=== PATIENT | female | born 1940 | race Caucasian/White ===

== ENCOUNTER → 2018-05-01 09:33 | Outpatient (CLI) | payer MEDICARE, OTHER, SELFPAY | PROVIDERS: PCP Internal Medicine; Visit Provider Internal Medicine | DX: Z78.0 Asymptomatic menopausal state (principal); E07.9 Disorder of thyroid, unspecified; Z87.891 Personal history of nicotine dependence | CPT/HCPCS: 77080 ==

== ENCOUNTER → 2018-12-17 10:38 | Outpatient (CLI) | payer MEDICARE, OTHER, SELFPAY ==
--- NOTE | 2018-12-17 | DI.RAD.S_ITS ---
PROCEDURE: XR SHOULDER RT MIN 2V INDICATIONS: RIGHT SHOULDER PAIN TECHNIQUE: The views of the shoulder were acquired. COMPARISON: None. FINDINGS: Bones: No fractures or dislocations but there is a moderate degree of degenerative a.c. joint osteoarthritis and a moderately severe degree of glenohumeral joint osteoarthritis. No suspicious bony lesions. Visualized ribs appear intact. Soft tissues: No suspicious soft tissue calcifications. 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 Dictated by: Wiley Tristan M.D. on 12/17/2018 at 13:11 Approved by: Wiley Tristan M.D. on 12/17/2018 at 13:12
== END ==
PROVIDERS: PCP Internal Medicine; Visit Provider Internal Medicine
DX: M25.511 Pain in right shoulder (principal); M19.011 Primary osteoarthritis, right shoulder
CPT/HCPCS: 73030

== ENCOUNTER 2019-03-04 13:20 | Day surgery (SDC) | payer MEDICARE, OTHER, SELFPAY ==
--- NOTE | 2019-03-04 | PATH_ITS ---
[facility] Accession Number: [id number] . 01 Material submitted: . colon - POLYP AT 55CM . 01 Clinical history: . SCREENING COLONOSCOPY . 02 Diagnosis: Colon at 55 cm, Polyp: Colonic mucosa with prominent benign lymphoid aggregate. Negative for serrated lesion, dysplasia or malignancy. Additional step sections examined. MRV 03/06/2019 1403 Local . 02 Electronically signed: . Isaiah Wagner MD, PhD, Pathologist NPI- [id number] . 01 Gross description: . POLYP AT 55CM: Received in formalin is 1 fragment(s) of mccoy, soft tissue measuring 0.3 x 0.2 x 0.2 cm submitted entirely in 1 cassette(s) [place] [place]/04/2019 2234 Local . 02 Pathologist provided ICD-10: K63.5 . 02 CPT . 921555 Performed at: 01 [facility] [address] [facility], [place], [place] [id number] MD Pedro Blandon MD Phone: [phone] Performed at: 02 [facility] [address] [place], [place] [id number] MD Monica Mckenzie MD Phone: [phone]
[2019-03-04 13:49] VITALS: BP 134/82; PULSE 77; RESP 15; TEMP 36.2; O2SAT 96; BMI 23.2
[2019-03-04] MEDS: SODIUM CHLORIDE 0.9% 1,000 ML 200 ML IV (14:01)
--- NOTE | 2019-03-04 14:29 | PM.HP.1 ---
History of Present Illness History of Present Illness Date Patient Seen: 03/04/19 Time Patient Seen: 14:29 Chief complaint: [id number] SCREENING COLONOSCOPY Narrative: This is a 78-year-old woman who had a prior screening colonoscopy over 5 years ago during which polyps were found. She was recommended to have a follow-up colonoscopy in 5 years. She denies any melena, hematochezia, unexplained weight loss, unexplained abdominal pain. She feels she is very healthy and has no medical complaints. She has never had a heart attack or stroke. ROS Thirteen system review is negative other than as mentioned below and in HPI. PE: GENERAL: Well groomed and cooperative. Appears stated age. Answers questions promptly and appropriately. Vital signs noted. HENT: Normocephalic, atraumatic. Hearing intact. Oral mucosa is pink and moist. EYES: Conjunctiva pink, sclera white, no periorbital swelling. CARDIOVASCULAR: Regular rate. No pedal edema. RESPIRATORY: Non tachypneic, breathing comfortably on room air. GASTROINTESTINAL: Abdomen soft and non-distended GENITALURINARY: No flank tenderness. MUSCULOSKELETAL: Equal tone and mass bilaterally. SKIN: Warm, dry, soft, appropriate color for ethnicity. No other lesions, rashes, or wounds. NEURO: Alert and Oriented X 3. No gross sensory deficits, or cognitive issues. PSYCH: Appropriate affect and mood. Patient History Medical History Anxiety (Acute) Arthritis (Acute) Wears glasses (Acute) Surgical History History of hysterectomy (Acute) Family & Social History Social History: household members children Meds Home Medications and Allergies Home Medications Medication Instructions Recorded Confirmed Type atorvastatin 40 mg PO DAILY 03/04/19 03/04/19 History cholecalciferol (vitamin D3) 2,000 unit PO DAILY 03/04/19 03/04/19 History [Vitamin D3] coenzyme Q10 [CoQ-10] 300 mg PO DAILY 03/04/19 03/04/19 History cyanocobalamin (vitamin B-12) 2,500 mcg SUBLINGUAL DAILY 03/04/19 03/04/19 History [Vitamin B-12] fluoxetine 20 mg PO DAILY 03/04/19 03/04/19 History ibuprofen-diphenhydramine cit 1 cap PO BEDTIME 03/04/19 03/04/19 History [Advil PM] lactobacillus combination no.4 3,000 mmu cells PO DAILY 03/04/19 03/04/19 History [Probiotic] levothyroxine 88 mcg PO DAILY 03/04/19 03/04/19 History timolol maleate 0.5 % OPHTHALMIC (EYE) BID 03/04/19 03/04/19 History Allergies Allergy/AdvReac Type Severity Reaction Status Date / Time No Known Drug Allergies Allergy Verified 03/04/19 13:31 Exam Vital Signs (past 8 hours): - 03/04/19 13:49 Temperature 97.2 F L Pulse Rate 77 Respiratory Rate 15 Blood Pressure 134/82 Pulse Oximetry 96 Oxygen Delivery Method Room Air Assessment & Plan Assessment and plan (1) Personal history of colonic polyps: Current visit: Yes Status: Acute Assessment & Plan narrative: This is a 78 woman with a history of colon polyps. She is here for follow-up surveillance colonoscopy. Risks and benefits of the procedure were discussed with the patient including bleeding, perforation, need for additional procedures. The patient desires to proceed with her colonoscopy procedure. Time Spent With Patient Time with patient: 15-24 minutes
--- NOTE | 2019-03-04 15:06 | PM.OP.ENDO ---
Operative Date/Time/Diagnoses Date of procedure: 03/04/19 Time of procedure: 15:06 Pre-op diagnosis: Personal history of colon polyps Post-op diagnosis: same Procedure & Clinicians Study performed: Colonoscopy, polypectomy x1 with cold forceps Same procedure as scheduled: Yes Indications: Personal history of colon polyps Surgeon: Elsie Romero Procedure Notes SCOAP/Timeout: Performed Procedure in detail: The patient was brought to the room and placed in left lateral decubitus position with all bony prominences padded. A time-out was performed and then the patient was given procedural sedation starting with 4 mg of Versed and 100 mcg of fentanyl. Vitals were monitored throughout the procedure and remained stable. Once adequately sedated the procedure was begun. A rectal exam was performed revealing no abnormalities. The colonoscope was then introduced to the rectum and advanced to the cecum in the usual fashion. The cecum was identified by the appendiceal orifice, the mucosal try fold, and the ileocecal valve. The scope was then retracted while rotating side to side and examining each mucosal fold. A small flat polyp was found at 55 cm, and removed entirely with cold forceps. At the conclusion procedure retroflexion was performed and grade 2 internal hemorrhoids without stigmata of bleeding were seen. The scope was then withdrawn from the rectum the procedure was concluded. The patient tolerated the procedure well was transferred to the PACU in stable condition. Scope withdrawal time: 10 Sedation minutes: 30 Findings: polyp Specimen(s): other (5 mm flat polyp at 55 cm) Complications: none Impression: Single flat polyp Post-procedure Recommendations: Colonscopy in 10 years (If pathology on polyp is nonneoplastic) Follow up: as needed Disposition: PACU
[2019-03-04] MEDS: fentaNYL 250 MCG/5 ML INJ IV (15:08)
[2019-03-04] MEDS: MIDAZOLAM 5 MG/5 ML VIAL IV (15:08)
[2019-03-04 15:30] VITALS: BP 127/79; PULSE 69; RESP 16; TEMP 36.7; O2SAT 98
== END 2019-03-04 15:39 | disposition home or self-care (01) ==
PROVIDERS: PCP Internal Medicine; Visit Provider Surgery
PROC: 0DJD8ZZ Inspection of Lower Intestinal Tract, Via Natural or Artificial Opening Endoscopic (ICD-10-PCS; CPT 45378; principal; 2019-03-04 14:30)
DX: Z12.11 Encounter for screening for malignant neoplasm of colon (principal); Z86.010 Personal history of colon polyps; K63.5 Polyp of colon; K64.1 Second degree hemorrhoids
CPT/HCPCS: 45380; 99152; 99153; J2250; J3010

== ENCOUNTER → 2020-01-20 07:53 | Outpatient (CLI) | payer MEDICARE, OTHER, SELFPAY ==
[2020-01-20 09:06] LABS: Add Manual Diff / Slide Review NO; Basophils Absolute Auto 0 /uL (0-100); Basophils Percent Auto 0.6 % (0-2); Eosinophils Absolute Auto 200 /uL (0-450); Eosinophils Percent Auto 3.1 % (2-4); Hematocrit 38.6 % (36-46); Hemoglobin 13.4 g/dL (12.0-16.0); Lymphocytes Absolute Auto 1700 /uL (1100-4500); Lymphocytes Percent Auto 29.6 % (25-40); Mean Corpuscular HGB Conc 34.6 % (30-36); Mean Corpuscular Hemoglobin 31.4 PG (26-34); Mean Corpuscular Volume 90.7 fL (80-100); Monocytes Absolute Auto 600 /uL (0-900); Monocytes Percent Auto 11.1 % (3-14); Neutrophils Absolute Auto 3200 /uL (1500-7000); Neutrophils Percent Auto 55.6 % (50-75); Platelet Count 211 X10^3/uL (150-400); Red Blood Cell Count 4.26 X10^6/uL (4.0-5.2); Red Cell Distribution Width 13.6 % (11.6-14.8); White Blood Cell Count 5.8 X10^3/uL (4.5-11.0)
[2020-01-20 09:22] LABS: Alanine Aminotransferase 26 IU/L (<35); Albumin 4.1 g/dL (3.5-5.0); Albumin Globulin Ratio 1.3 (1.0-2.8); Alkaline Phosphatase 89 U/L (38-126); Aspartate Aminotransferase 29 IU/L (14-36); Bilirubin Total 0.8 mg/dL (0.2-1.3); Blood Urea Nitrogen 17 mg/dL (7-17); Calcium 8.9 mg/dL (8.4-10.2); Carbon Dioxide 27 mmol/L (22-32); Chloride 106 mmol/L (98-107); Cholesterol 140 mg/dL (140-199); Estimated Glomerular Filt Rate > 60.0 mL/min (>60); Globulin 3.1 g/dL (1.7-4.1); Glucose 95 mg/dL (80-110); HDL Cholesterol 44 mg/dL (40-60); HEMOLYSIS < 15 (0-50); LDL Cholesterol Calculated 78 mg/dL (<100); Potassium 3.9 mmol/L (3.4-5.1); Sodium 138 mmol/L (137-145); Total Protein 7.2 g/dL (6.3-8.2); Triglycerides 90 mg/dL (35-150)
[2020-01-20 10:16] LABS: Free T4, Direct Thyroxine 1.36 ng/dL (0.78-2.19)
== END ==
PROVIDERS: PCP Internal Medicine; Referring Provider Internal Medicine; Visit Provider Internal Medicine
DX: F32.9 Major depressive disorder, single episode, unspecified (principal); E03.9 Hypothyroidism, unspecified; E78.2 Mixed hyperlipidemia; M15.0 Primary generalized (osteo)arthritis
CPT/HCPCS: 36415; 80053; 80061; 84439; 84443; 85025

== ENCOUNTER → 2020-12-20 13:28 | Outpatient (CLI) | payer MEDICARE, OTHER, SELFPAY ==
--- NOTE | 2020-12-20 13:38 | DI.CT.S_ITS ---
PROCEDURE: CT UE RT WO CON INDICATIONS: Primary osteoarthritis, right shoulder TECHNIQUE: Noncontrast 1-1.5 mm thick sections acquired from the acromioclavicular joint to the inferior scapula, with coronal and sagittal reformatting. COMPARISON: [facility], CR, XR SHOULDER RT MIN 2V, 12/17/2018, 10:37. FINDINGS: Image quality: Excellent. Bones: No acute fracture or dislocation. Mild to moderate acromioclavicular osteoarthrosis is seen. The included portions of the ribs in the clavicle are intact. There are severe degenerative changes at the glenohumeral joint with full thickness joint space narrowing, subchondral cystic changes, marginal osteophyte formation, and remodeling of the articular surfaces. There is mild loss of bone stock at the posterior glenoid resulting in mild posterior subluxation of the humeral head and approximately 28? of glenoid retroversion relative to the midplane of the scapula at the mid glenoid level. Soft tissues: Small glenohumeral effusion. A moderate subcoracoid bursal fluid collection is present. The articular cartilages, labrum, ligaments and tendons are not well evaluated with CT. There is no disproportionate rotator cuff muscle atrophy. The included right lung is clear. IMPRESSION: 1. Severe glenohumeral osteoarthrosis as described above. There is loss of posterior glenoid bone stock with mild posterior subluxation of the humeral head and approximately 28? of glenoid retroversion relative to the midplane of the scapula at the mid glenoid level. 2. Mild to moderate acromioclavicular joint osteoarthrosis. 3. Small glenohumeral effusion. Moderate subcoracoid bursal effusion. Dictated by: Bentley Campos M.D. on 12/20/2020 at 14:33 Approved by: Bentley Campos M.D. on 12/20/2020 at 14:40
== END ==
PROVIDERS: PCP Physician Assistant; Referring Provider Orthopaedic Surgery; Visit Provider Orthopaedic Surgery
DX: M19.011 Primary osteoarthritis, right shoulder (principal); M25.411 Effusion, right shoulder
CPT/HCPCS: 73200

== ENCOUNTER → 2021-01-20 10:36 | Outpatient (CLI) | payer MEDICARE, OTHER, SELFPAY ==
[2021-01-20 12:08] LABS: Add Manual Diff / Slide Review NO; Basophils Absolute Auto 0 /uL (0-100); Basophils Percent Auto 0.6 % (0-2); Eosinophils Absolute Auto 100 /uL (0-450); Eosinophils Percent Auto 2.3 % (2-4); Hematocrit 40.6 % (36-46); Hemoglobin 13.5 g/dL (12.0-16.0); Lymphocytes Absolute Auto 1400 /uL (1100-4500); Lymphocytes Percent Auto 29.1 % (25-40); Mean Corpuscular HGB Conc 33.3 % (30-36); Mean Corpuscular Hemoglobin 30.5 PG (26-34); Mean Corpuscular Volume 91.7 fL (80-100); Monocytes Absolute Auto 600 /uL (0-900); Monocytes Percent Auto 12.2 % (3-14); Neutrophils Absolute Auto 2700 /uL (1500-7000); Neutrophils Percent Auto 55.8 % (50-75); Platelet Count 216 X10^3/uL (150-400); Red Blood Cell Count 4.43 X10^6/uL (4.0-5.2); Red Cell Distribution Width 13.7 % (11.6-14.8); White Blood Cell Count 4.9 X10^3/uL (4.5-11.0)
[2021-01-20 12:12] LABS: Hemoglobin A1C% w Est Avg Glu 5.3 % (4.0-6.0)
[2021-01-20 12:49] LABS: BUN Creatinine Ratio 19.2 (6-22); Blood Urea Nitrogen 14 mg/dL (7-17); Calcium 9.4 mg/dL (8.4-10.2); Carbon Dioxide 27 mmol/L (22-32); Chloride 104 mmol/L (98-107); Estimated Glomerular Filt Rate > 60.0 mL/min (>60); Glucose 90 mg/dL (80-110); HEMOLYSIS < 15 (0-50); Potassium 4.6 mmol/L (3.4-5.1); Sodium 139 mmol/L (137-145)
== END ==
PROVIDERS: PCP Physician Assistant; Referring Provider Orthopaedic Surgery; Visit Provider Orthopaedic Surgery
DX: Z01.818 Encounter for other preprocedural examination (principal); R73.9 Hyperglycemia, unspecified; M25.511 Pain in right shoulder; Z01.812 Encounter for preprocedural laboratory examination
CPT/HCPCS: 36415; 80048; 83036; 85025; 93005; 93010

== ENCOUNTER → 2021-02-25 09:12 | Outpatient (CLI) | payer MEDICARE, OTHER, SELFPAY ==
[2021-02-25 11:53] LABS: COVID19 -Nasal RAPID Negative (Negative)
== END ==
PROVIDERS: Nurse Practitioner Family; PCP Physician Assistant; Visit Provider Nurse Practitioner Family
DX: Z20.822 Contact with and (suspected) exposure to COVID-19 (principal)
CPT/HCPCS: 87635; C9803

== ENCOUNTER 2021-02-28 08:25 | Day surgery (SDC) | payer MEDICARE, OTHER, SELFPAY ==
[2021-02-16 09:43] VITALS: BMI 24.2
[2021-02-28 08:46] VITALS: BP 141/69; PULSE 58; RESP 15; TEMP 36.7; O2SAT 97; BMI 24.2
[2021-02-28] MEDS: LACTATED RINGERS 1,000 ML 42 ML IV (09:09)
[2021-02-28] MEDS: PREGABALIN 75 MG CAPSULE PO (09:13)
[2021-02-28] MEDS: CELECOXIB 200 MG CAPSULE PO (09:14)
[2021-02-28] MEDS: ACETAMINOPHEN 325 MG TABLET 975 MG PO (09:14)
--- NOTE | 2021-02-28 09:14 | PM.PREOP ---
Pre-operative Note COVID-19 COVID-19 status: Negative Result date/Date tested (Pos, Neg/Pending): 02/25/21 Interval Note History & Physical reviewed/Exam performed by Physician: Yes Changes to H&P: No
--- NOTE | 2021-02-28 09:21 | PM.OP.1 ---
Operative Date/Time/Diagnoses Date of procedure: 02/28/21 Pre-op diagnosis: Right shoulder osteoarthritis Post-op diagnosis: same Procedure & Clinicians Procedure: Right total shoulder replacement Same procedure as scheduled: Yes Indications: The patient has had progressively worsening right shoulder pain with radiographic changes consistent with arthritis. Non-operative management has failed and the patient has requested total shoulder replacement. The risks, benefits and alternatives to surgery were discussed with the patient prior to proceeding. Risks discussed included, but were not limited to, failure to relieve pain, stiffness, infection, nerve damage, deep venous thrombosis, pulmonary embolism, stroke, coma, heart attack, permanent paralysis and , as well as the potential need for eventual revision of the prosthetic. Surgeon: Isidro Herr Complaint Evaluation Supervisor: Kobi Salvador Click Yes if Unassisted: No Anesthesia Type: General, Peripheral nerve block and Local Operative Notes Closure Type: primary Specimen(s): none sent Prosthetic devices, grafts, tissues, transplants, or devices: Implants used in this procedure were manufactured by the [employer] and included Applied: implant(s) Blood products transfused: none Procedure in detail: The patient was seen in the pre-operative area, where the patient identified the right shoulder as the operative site and this was marked with my initials. The patient received pre-operative antibiotics, underwent an interscalene block, and was taken to the operating room and placed on the operative table in the supine position. After satisfactory anesthesia, a full ?time out? was performed. The patient was repositioned in the ?beach chair? position using a dedicated positioner. All pressure points were well padded, and the knees were slightly bent to prevent tension on the sciatic nerves. The right arm was prepared from the fingers to the base of the neck with ChloroPrep in the usual fashion and draped through sterile drapes. An approximately 15 cm incision was created, starting at the clavicle above the coracoid process and extended towards the deltoid insertion. The deltopectoral interval was used to access the shoulder. The cephalic vein was taken medially. A self retaining retractor was placed. The upper centimeter of the pectoralis major tendon was released. The ?three sisters? were identified and cauterized. The axillary nerve was palpated and protected throughout the case. The biceps was released from its groove and tenodesed over the top of the pectoralis major tendon. The subscapularis was released from the lesser tuberosity with a subscapularis peel and tagged for later repair. The shoulder was dislocated and a cutting guide was used for the proximal humeral osteotomy in 30 degrees of retroversion. A starter reamer was used followed by the cylindrical reamers. This continued in larger sizes in till cortical bite was achieved. Sequential broaching was then performed until a line to line fit with the reamer occurred. A proximal humeral protector was then placed. We then removed the self-retaining retractor and placed retractors to access the glenoid. The subscapularis was released with a ?360 degree release? with care being taken to protect the axillary nerve with the inferior portion of this procedure. The remnant of labrum and biceps stump were removed. The appropriate size reamer was chosen with the glenoid sizer, and the guide pin placed. The glenoid was appropriately reamed. The guide for the peripheral holes was used and the center hole enlarged. The trial glenoid was placed with good stability. We then cemented the final implant into place after irrigating the peg holes and drying them with thrombin-soaked Gelfoam. We returned our attention to the humerus, a trial humeral head was applied and a trial reduction performed. Stability was checked with []. This was felt to be satisfactory and the appropriate implants were opened. Five holes were drilled along the humeral osteotomy and #2 TiCron sutures placed for eventual subscapularis repair. The humeral prosthetic was impacted into the humerus. The humeral head was applied when the stem was still slightly proud and impacted to both seat the head and fully seat the stem. The joint was relocated one final time. The joint was irrigated and the subscapularis repaired to the previously placed sutures using Max-Kenn sutures. The top of the subscapularis was closed to the leading edge of the supraspinatus with a figure of 8 #2 TiCron to close the rotator interval. A deep drain was placed and brought out supero-laterally. The deltopectoral interval was closed with interrupted 0 Vicryl. The subcutaneous layer was closed with 3-0 Vicryl, and the skin with a running 3-0 V-Lock suture and SteriStrips. An Aquacel Ag dressing was applied, the patient?s arm was placed in a sling, and the patient was taken to recovery having tolerated the procedure well. Post-operative Condition: stable Disposition: PACU Plan for aftercare: The patient will be maintained on a standard total shoulder replacement protocol with passive range of motion limited to 90 degrees forward flexion, 0 degrees external rotation at the side, 0 degrees abduction and internal rotation to the body. The patient will receive aspirin and sequential compression devices for DVT prophylaxis. The patient will be discharged home when safe for the home environment, likely tomorrow.
[2021-02-28 09:36] VITALS: BP 154/80; PULSE 55; RESP 20; O2SAT 96
[2021-02-28 09:46] VITALS: BP 142/71; PULSE 52; RESP 14; O2SAT 98
[2021-02-28 09:52] VITALS: BP 198/106; PULSE 64; RESP 15; O2SAT 96
[2021-02-28 10:04] VITALS: BP 160/85; PULSE 61; RESP 17; O2SAT 94
--- NOTE | 2021-02-28 10:15 | SUR.PREOP ---
Block start time [0943] . Versed and fentanyl given at start of procedure Monitoring initiated and maintained throughout procedure. Oxygen and medications given per anesthesiologist instructions. Patient remained stable throughout procedure. When procedure done patient unable to talk and jerky movements noted. Vitals taken Q 5 showed soon after BP to 190s. Code stroke called when pt didn't improve right away. Taken to CT and then to ER. Dr Herr called family to notify them. See regular notes in chart and VS charting
--- NOTE | 2021-02-28 10:22 | SUR.PREOP ---
0934 Dr Ramirez here and gave Fentanyl and versed to patient prior to getting a block. Placed on a couple liters oxygen for drop in O2 sat. 0942 Lidocaine injected into right shoulder 0943 Block done 0944 Noted unusual symptoms of unable to speak and jerky movements. 0952 Able to follow commands but still unable to speak. Stll jerky and very scared BP 198/106 0957 Called code stroke. Evelyn OH from ER here to run code stroke. Glucoscan 100 Lab and other personnel here. Took patient to CT, then taking to ER
--- NOTE | 2021-02-28 10:38 | P.PCN_ITS ---
Procedures Date/Time Date of procedure: 02/28/21 Time of procedure: 09:35 General Procedure description: Ultrasound guided interscalene brachial plexus nerve block for post op pain control after right total shoulder arthroplasty by Dr. Herr. Risk and benefits of procedure discussed with patient. ASA monitoring applied to patient. O2 given via nasal cannula. 1 mg Versed and 50 mcg fentanyl given for procedural sedation. Skin site was prepped with chlorhexidine and allowed to fully dry. Sterile gloves, mask, hat and probe cover were used to maintain sterility. 2% lidocaine and 30ga needle was used to make a small skin wheal at needle insertion site. Under ultrasound guidance, a 21ga 50mm Pajunk needle was directed into the interscalene groove (middle/anterior scalenes) near the brachial plexus. Patient reported no parasthesias. After negative aspiration, 20 mL 0.5% ropivacaine and 10mg dexamethasone were injected around brachial plexus. Within 2-3 minutes of injection, patient became noticably agitated and aphasic. Upper extremities were twitching involuntarily and patient became verbally non- expressive. She was able to track with eyes, nod yes or no to questions and follow verbal commands to move each limb independently. She was unable to follow the verbal command to smile or stick out tongue. Respiratory effort remained intact throughout. Code Stroke called and surgery aborted prior to OR. Information relayed to Stroke Team regarding expectation of temporary (12-36 hr) right upper extremity paralysis due to intentional right brachial plexus nerve block. Vitals signs reflected severe anxiety (BP 190-100). Patient denied pain and headache during and after procedure.
== END 2021-02-28 08:30 | disposition home or self-care (01) ==
LOC: OR 08:27 → AC 11:13 → OR 03-01 01:13
PROVIDERS: PCP Physician Assistant; Referring Provider Orthopaedic Surgery; Visit Provider Orthopaedic Surgery
DX: M19.011 Primary osteoarthritis, right shoulder (principal)
CPT/HCPCS: 64450; 82962; J1100; J2250; J2704; J3010

== ENCOUNTER 2021-02-28 10:10 | Emergency (ER) | payer MEDICARE, OTHER, SELFPAY ==
[2021-02-28] VITALS (32 sets, daily range): BP systolic 145–191; BP diastolic 68–132; PULSE 47–97; RESP 13–31; O2SAT 91–95
--- NOTE | 2021-02-28 10:15 | DI.CT.S_ITS ---
PROCEDURE: CT ANGIO HEAD AND NECK INDICATIONS: Expressive aphasia TECHNIQUE: After the administration of intravenous contrast, 1 mm thick sections acquired from the aortic arch through the [place]. Post-contrast 4.5 mm thick sections then re-acquired from the foramen magnum to the vertex. 3-dimensional almqeue-jhvtabcvw-knfrthmayh (MIP) and/or volume rendering reformats were acquired of the central intracranial vasculature and neck separately. COMPARISON: [facility], CT, CT STROKE, 02/28/2021, 10:14. FINDINGS: Image quality: Excellent. BRAIN: CSF spaces: Ventricles are normal in size and shape. Basal cisterns are patent. No extra-axial fluid collections. Brain: No midline shift. No intracranial bleeds or masses. Foy-white matter interface appears intact. Skull and face: Calvarium and facial bones appear intact, without suspicious lesions. Orbits appear normal. Sinuses: Sinuses and mastoids are clear. HEAD CT ANGIOGRAPHY: Anterior circulation: Intracranial internal carotid arteries are normal in size and flow. The flow within the paired anterior cerebral arteries is normal and symmetric. The flow within the middle cerebral arteries is normal and symmetric. The anterior communicating artery is seen. No aneurysms are seen. Posterior circulation: Visualized portions of the vertebral arteries demonstrate normal caliber, and join to form a normal appearing basilar artery. Flow within the posterior cerebral arteries is normal and symmetric. No aneurysms are seen. NECK CT ANGIOGRAPHY: Carotid system: The great vessels demonstrate a conventional anatomy as they arise from the aortic arch. The origins of the common carotid arteries appear patent. The common carotid arteries demonstrate normal caliber and courses. The bifurcation regions are both widely patent. The internal carotid arteries demonstrate normal calibers and courses. Posterior circulation: The origins of the vertebral arteries both appear widely patent. The more superior extracranial portions of both vertebral arteries also demonstrate normal courses and calibers. They join to form a normal appearing basilar artery. Soft tissues: Visualized neck soft tissues demonstrate no suspicious abnormalities. Bones: No suspicious bony lesions. Visualized cervical spine appears normally aligned. IMPRESSION: 1. No evidence acute stroke, hemorrhage, or mass. 2. Unremarkable CTA head. No stenosis, aneurysm, occlusion, or focal filling defect. 3. Widely patent internal carotids. Otherwise unremarkable CTA neck. Comment: Findings were discussed with Dr. Good on 02/28/2021 at 1038 hours Any quantitative measurements of stenosis were performed using NASCET criteria. Dictated by: Stephon Graham M.D. on 02/28/2021 at 10:35 Approved by: Stephon Graham M.D. on 02/28/2021 at 10:39
--- NOTE | 2021-02-28 10:15 | DI.CT.S_ITS ---
PROCEDURE: CT STROKE INDICATIONS: Expressive aphasia TECHNIQUE: Noncontrast 4.5 mm thick angled axial sections acquired from the foramen magnum to the vertex, with coronal reformats. For radiation dose reduction, the following was used: automated exposure control, adjustment of mA and/or kV according to patient size. COMPARISON: None. FINDINGS: Image quality: Excellent. CSF spaces: Basal cisterns are patent. No extra-axial fluid collections. The ventricles are symmetric in size and shape. Brain: No intracranial bleeds or masses. There is cerebral volume loss for age, with resultant ventricular and sulcal prominence. There are periventricular and deep white matter chronic small vessel ischemic changes. There is intracranial internal carotid artery atherosclerosis. Skull and face: Calvarium and visualized facial bones appear intact, without suspicious lesions. Sinuses: Visualized sinuses and mastoids are clear. IMPRESSION: No evidence acute stroke, hemorrhage, or mass. Comment: Findings were discussed with Dr. Good at the time of study dictation on 02/28/2021 at 1033 hours. This study fulfills neurological imaging criteria for inclusion or exclusion of acute stroke therapies based on available published neurological guidelines. Dictated by: Stephon Graham M.D. on 02/28/2021 at 10:32 Approved by: Stephon Graham M.D. on 02/28/2021 at 10:34
--- NOTE | 2021-02-28 10:16 | ED.NEUROSD ---
HPI - Neuro Symptoms/Deficit General Chief Complaint: Neuro Symptoms/Deficit Stated Complaint: code stroke Time Seen by Provider: 02/28/21 10:14 Source: other Mode of arrival: other Limitations: other History of Present Illness HPI Narrative: Code stroke called from the operating room department. Patient transferred here and sent directly to CT scan imaging for CT of the head and angiogram. Patient had right shoulder surgery is morning. Had a nerve block in the shoulder. After completion procedure patient had expressive aphasia. Her last well-known 9:45 a.m. just prior to giving sedation. Patient symptoms have resolved. Anesthesiologist at bedside. Patient had scalene block for total right shoulder valenzuela surgery. Anesthesiologist states it could be medication related however this is uncommon. Patient had only 1 mg of Versed as well. Patient still has residual right scalene shoulder block affect. Patient does remember conversation but could not speak. Duration 20 minutes. Related Data Home Medications Medication Instructions Recorded Confirmed atorvastatin 40 mg tablet 40 mg PO DAILY 03/04/19 02/28/21 cholecalciferol (vitamin D3) 50 2,000 unit PO DAILY 03/04/19 02/28/21 mcg (2,000 unit) tablet (Vitamin D3) coenzyme Q10 100 mg capsule 300 mg PO DAILY 03/04/19 02/28/21 (CoQ-10) cyanocobalamin (vitamin B-12) 2,500 mcg SUBLINGUAL DAILY 03/04/19 02/28/21 2,500 mcg sublingual tablet (Vitamin B-12) fluoxetine 20 mg capsule 20 mg PO DAILY 03/04/19 02/28/21 lactobacillus combination no.4 3 3,000 mmu cells PO DAILY 03/04/19 02/28/21 billion cell capsule (Probiotic) levothyroxine 88 mcg tablet 100 mcg PO DAILY 03/04/19 02/28/21 brimonidine 0.2 %-timolol 0.5 % 1 drp EYE-BOTH BID 02/16/21 02/28/21 eye drops (Combigan) diphenhydramine 25 1 tab PO BEDTIME 02/16/21 02/28/21 mg-acetaminophen 500 mg tablet (Acetaminophen PM) latanoprost 0.005 % eye drops 1 drp EYE-BOTH DAILY 02/16/21 02/28/21 meloxicam 15 mg tablet 15 mg PO DAILY PRN 02/16/21 02/28/21 Allergies Allergy/AdvReac Type Severity Reaction Status Date / Time adhesive tape Allergy Mild Skin Verified 02/28/21 08:42 Irritation, paper tape works well Review of Systems Review of Systems Narrative: GENERAL: Denies chills, fatigue, malaise, fever, sweats. HEENT: Denies sinus pain, ear pain, sore throat RESPIRATORY: Denies dyspnea, cough CARDIOVASCULAR: Denies chest pain, palpitations GASTROINTESTINAL: Denies nausea, vomiting, abdominal pain : Denies dysuria, frequency, hematuria MUSCULOSKELETAL: denies muscle or bony pain SKIN: Denies rash, skin lesions NEUROLOGIC: Denies weakness, numbness, positive for confusion ROS Unobtainable: All systems reviewed & are unremarkable except as noted in HPI and below Patient History Medical History Anxiety Arthritis Depression Glaucoma HLD (hyperlipidemia) Hypothyroid Osteoarthritis Wears glasses Surgical History History of hysterectomy Hx of bilateral cataract extraction Hx of breast biopsy Social History household members: children Smoking Status: Former smoker alcohol intake: current Smoking Status: Former smoker alcohol intake frequency: a few times a week Substance Use Type: does not use Exam Narrative Exam Narrative: GENERAL: in no distress, not toxic not dyspneic HEAD: Normocephalic. EYES: Pupils equal round No scleral icterus. ENT: Mucous membranes moist. NECK: Trachea midline. CARDIOVASCULAR: Regular rate and rhythm without murmurs RESPIRATORY: Clear to auscultation. Breath sounds equal bilaterally. No wheezes, rales, or rhonchi. GASTROINTESTINAL: Abdomen soft, non-tender EXTREMITIES: No gross deformities. BACK: No flank tenderness. NEURO: AOx4. Clear speech no facial droop light touch intact to bilateral feet and left hand and bilateral face. Strong left commodity supervisor. No pronator drift with the left arm. Patient has nerve block in the right shoulder and unable to assess motor sensory to right upper extremity at this time. SKIN: Warm and dry PSYCH: Not anxious, is cooperative Initial Vital Signs Initial Vital Signs: Vital Signs Pulse Rate 59 L 02/28/21 10:25 Respiratory Rate 17 02/28/21 10:25 Blood Pressure 152/72 H 02/28/21 10:25 Pulse Oximetry 93 02/28/21 10:25 Scores NIH Stroke Scale Level of Conciousness: Alert, keenly responsive Ask month/age: Answers both questions correctly. Best gaze horizontal: Normal Visual cerna: No visual loss Facial palsy: Normal symetrical movement Left arm drift: No drift for full 10 sec Right arm drift: No movement (pt under anesthesia block) Left leg drift: No drift for full 5 sec Right leg drift: No drift for full 5 sec Sensory on face/arms/legs: Normal, no sensory loss (Patient's head is nontender and normocephalic. There is no swelling nor any obvious injury.) Best language: No aphasia, normal Dysarthria: Normal Extinction or inattention: No abnormality Course Course Course Narrative: 10:[address] Graham, radiologist, CT brain without contrast is negative. No acute process. 10:[address] Graham, radiologist, CT angiogram of head and neck no acute process Patient understands no bed availability here. Will need transfer for stroke workup Orders Ordered: ED Orders 02/28/21 09:58 EKG-12 Lead Stat 02/28/21 10:[address] angio head and neck Stat 02/28/21 10:16 Partial Thromboplastin Time Stat Prothrombin Time INR Stat 02/28/21 10:20 Complete Blood Count AUTO DIFF Stat Comprehensive Metabolic Panel Stat Troponin & CK Cardiac Panel Stat 02/28/21 11:45 EC echo doppler complete Stat 02/28/21 11:46 MR head/brain wo con Stat 02/28/21 12:34 COVID19 - ADMIT (STRIKE WARFARE/MISSILE SYSTEMS OFFICER swab/PCR) Stat Reevaluation(s) Reevaluation #1: Updated patient that Dr. Herr did call family and left a voicemail. We will try calling as well. Updated patient on results. As well as conversation with neurology/stroke team. Advised for admit in MRI and echocardiogram. Time: 11:16 Reevaluation #2: Left voicemail with son to call us. Time: 11:42 Consultations Consultation #1: Spoke with Dr. vic lei, tele stroke. Advises patient to be admitted for MRI and echocardiogram as patient did not have any altered mental status continue confusion with expressive aphasia Time: 11:17 Consultation #2: Spoke with [facility], hospitalist, dr patterson, will accept pt Time: 11:35 Consultation #3: Spoke with [facility], nurse environmental project manager, Santosh, as well as hospitalist, echo and MRI are done. Will find a bed for patient Time: 15:36 Additional Consultation(s): Son did arrive and at bedside. Explained to him transfer indications and reasons. He understood. Vital Signs Vital signs: Vital Signs - 8 hr 02/28/21 10:25 02/28/21 10:30 02/28/21 10:45 Pulse Rate 59 L 59 L 59 L Respiratory Rate 17 24 24 Blood Pressure 152/72 H 145/71 H Pulse Oximetry 93 92 93 02/28/21 11:00 02/28/21 11:15 02/28/21 11:30 Pulse Rate 49 L 48 L 49 L Respiratory Rate 15 20 15 Blood Pressure 158/70 H 165/74 H Pulse Oximetry 93 92 92 02/28/21 11:45 02/28/21 12:00 02/28/21 12:04 Pulse Rate 48 L 57 L 53 L Respiratory Rate 24 24 24 Blood Pressure Pulse Oximetry 91 95 94 02/28/21 12:05 02/28/21 12:32 02/28/21 12:36 Pulse Rate 60 53 L Respiratory Rate 19 Blood Pressure 186/89 H 191/81 H Pulse Oximetry 93 94 02/28/21 12:45 02/28/21 13:00 02/28/21 13:01 Pulse Rate 60 48 L 49 L Respiratory Rate 25 H 16 17 Blood Pressure 169/106 H Pulse Oximetry 94 94 94 02/28/21 13:17 02/28/21 13:30 02/28/21 13:31 Pulse Rate 94 H 47 L 47 L Respiratory Rate 15 15 Blood Pressure 162/89 H Pulse Oximetry 95 93 93 02/28/21 13:45 02/28/21 14:00 02/28/21 14:15 Pulse Rate 54 L 49 L 48 L Respiratory Rate 31 H 21 21 Blood Pressure 178/78 H Pulse Oximetry 94 94 94 02/28/21 14:30 02/28/21 14:31 02/28/21 14:45 Pulse Rate 48 L 97 H 50 L Respiratory Rate 22 24 19 Blood Pressure 183/132 H Pulse Oximetry 92 92 93 02/28/21 15:00 02/28/21 15:01 02/28/21 15:15 Pulse Rate 49 L 49 L 49 L Respiratory Rate 18 16 17 Blood Pressure 162/103 H Pulse Oximetry 91 91 91 MDM - Neuro Symptoms/Deficit Differential Diagnosis Differential diagnosis: Likely subarachnoid hemorrhage, cerebrovascular accident and transient cerebral ischemia Lab Data Result diagrams: 02/28/21 10:20 02/28/21 10:20 Labs: Lab Results 02/28/21 02/28/21 02/28/21 Range/Units 10:16 10:20 10:20 WBC 6.2 (4.5-11.0) X10^3/uL RBC 4.26 (4.0-5.2) X10^6/uL Hgb 13.2 (12.0-16.0) g/dL Hct 38.6 (36-46) % MCV 90.5 (80-100) fL MCH 31.1 (26-34) PG MCHC 34.3 (30-36) % RDW 13.3 (11.6-14.8) % Plt Count 201 (150-400) X10^3/uL Neut % (Auto) 67.6 (50-75) % Lymph % (Auto) 19.5 L (25-40) % Lat[place] % (Auto) 11.1 (3-14) % Eos % (Auto) 1.2 L (2-4) % Baso % (Auto) 0.6 (0-2) % Neut # (Auto) 4200 (1948-6406) /uL Lymph # (Auto) 1200 (0901-2564) /uL [place] # (Auto) 700 (0-900) /uL Eos # (Auto) 100 (0-450) /uL Baso # (Auto) 0 (0-100) /uL PT 12.0 (10.1-12.7) SECONDS INR 1.1 (0.9-1.3) APTT 29 (26.4-36.2) SECONDS Sodium 138 (137-145) mmol/L Potassium 4.0 (3.4-5.1) mmol/L Chloride 106 (98-107) mmol/L Carbon Dioxide 24 (22-32) mmol/L BUN 12 (7-17) mg/dL Creatinine 0.66 (0.52-1.04) mg/dL Estimated GFR > 60.0 (>60) mL/min BUN/Creatinine Ratio 18.2 (6-22) Glucose 99 (80-110) mg/dL Calcium 8.7 (8.4-10.2) mg/dL Total Bilirubin 0.8 (0.2-1.3) mg/dL AST 26 (14-36) IU/L ALT 19 (<35) IU/L Alkaline Phosphatase 82 (38-126) U/L Total Creatine Kinase 57 (30-135) U/L CK-MB (CK-2) TNP CK-MB (CK-2) Rel Index TNP Troponin I < 0.012 (0.01-0.034) ng/mL Total Protein 6.7 (6.3-8.2) g/dL Albumin 4.1 (3.5-5.0) g/dL Globulin 2.6 (1.7-4.1) g/dL Albumin/Globulin Ratio 1.6 (1.0-2.8) SARS-CoV-2 (PCR) (Negative) 02/28/21 Range/Units 12:34 WBC (4.5-11.0) X10^3/uL RBC (4.0-5.2) X10^6/uL Hgb (12.0-16.0) g/dL Hct (36-46) % MCV (80-100) fL MCH (26-34) PG MCHC (30-36) % RDW (11.6-14.8) % Plt Count (150-400) X10^3/uL Neut % (Auto) (50-75) % Lymph % (Auto) (25-40) % Latimer % (Auto) (3-14) % Eos % (Auto) (2-4) % Baso % (Auto) (0-2) % Neut # (Auto) (0177-3997) /uL Lymph # (Auto) (3647-2973) /uL Latimer # (Auto) (0-900) /uL Eos # (Auto) (0-450) /uL Baso # (Auto) (0-100) /uL PT (10.1-12.7) SECONDS INR (0.9-1.3) APTT (26.4-36.2) SECONDS Sodium (137-145) mmol/L Potassium (3.4-5.1) mmol/L Chloride (98-107) mmol/L Carbon Dioxide (22-32) mmol/L BUN (7-17) mg/dL Creatinine (0.52-1.04) mg/dL Estimated GFR (>60) mL/min BUN/Creatinine Ratio (6-22) Glucose (80-110) mg/dL Calcium (8.4-10.2) mg/dL Total Bilirubin (0.2-1.3) mg/dL AST (14-36) IU/L ALT (<35) IU/L Alkaline Phosphatase (38-126) U/L Total Creatine Kinase (30-135) U/L CK-MB (CK-2) CK-MB (CK-2) Rel Index Troponin I (0.01-0.034) ng/mL Total Protein (6.3-8.2) g/dL Albumin (3.5-5.0) g/dL Globulin (1.7-4.1) g/dL Albumin/Globulin Ratio (1.0-2.8) SARS-CoV-2 (PCR) Negative (Negative) Point of Care Testing Glucose POC 117 Urine Dip Bedside Urine Glucose Negative Bedside Urine Bilirubin - Negative Bedside Urine Ketone - Negative Urine Specific [place] 1.015 Bedside Urine Occult Blood - Negative Bedside Urine pH 7.0 Bedside Urine Protein - Negative Bedside Urine Urobilinogen - Negative Bedside Urine Nitrite - Negative Bedside Urine Leukocytes + 70 Esterase Imaging Data CTA - brain/neck: My Impression: [place] [address] CT Scan Report Signed Patient: Eden Hadley MR#: [id number] : 1940 Acct:[id number] Age/Sex: 80 / F Date of Service: 02/28/21 Loc: ED Accession Number: [id number] ?? Procedure: CT Stroke Ordering Provider: Ronaldo Pierre MD PROCEDURE:? CT STROKE ? INDICATIONS:? Expressive aphasia ? TECHNIQUE:? Noncontrast 4.5 mm thick angled axial sections acquired from the foramen magnum to the vertex, with coronal reformats.? For radiation dose reduction, the following was used:? automated exposure control, adjustment of mA and/or kV according to patient size.? ? COMPARISON:? None. ? FINDINGS:? Image quality:? Excellent.? ? CSF spaces:? Basal cisterns are patent.? No extra-axial fluid collections.? The ventricles are symmetric in size and shape.? ? Brain:? No intracranial bleeds or masses.? There is cerebral volume loss for age, with resultant ventricular and sulcal prominence.? There are periventricular and deep white matter chronic small vessel ischemic changes.? There is intracranial internal carotid artery atherosclerosis.? ? Skull and face:? Calvarium and visualized facial bones appear intact, without suspicious lesions.? ? Sinuses:? Visualized sinuses and mastoids are clear.? ? IMPRESSION:? No evidence acute stroke, hemorrhage, or mass. ? Comment: Findings were discussed with? Dr. Pierre at the time of study dictation on 02/28/2021 at 1033 hours. ? ? This study fulfills neurological imaging criteria for inclusion or exclusion of acute stroke therapies based on available published neurological guidelines.? ? ? Dictated by: Stephon Graham M.D. on 02/28/2021 at 10:32 ? ? Approved by: Stephon Graham M.D. on 02/28/2021 at 10:34 ? Radiologist's Impression: [place] [address] CT Scan Report Signed Patient: Eden Hadley MR#: [id number] : 1940 Acct:[id number] Age/Sex: 80 / F Date of Service: 02/28/21 Loc: ED Accession Number: [id number] ?? Procedure: CT angio head and neck Ordering Provider: Ronaldo Pierre MD PROCEDURE:? CT ANGIO HEAD AND NECK ? INDICATIONS:? Expressive aphasia ? TECHNIQUE:? After the administration of intravenous contrast, 1 mm thick sections acquired from the aortic arch through the [place].? Post-contrast 4.5 mm thick sections then re-acquired from the foramen magnum to the vertex.? 3-dimensional xshkznr-scmpjohtw-cmojpikixh (MIP) and/or volume rendering reformats were acquired of the central intracranial vasculature and neck separately. ? COMPARISON:? [facility], CT, CT STROKE, 02/28/2021, 10:14. ? FINDINGS:? Image quality:? Excellent.? ? BRAIN:? CSF spaces:? Ventricles are normal in size and shape.? Basal cisterns are patent.? No extra-axial fluid collections.? ? Brain:? No midline shift.? No intracranial bleeds or masses.? Foy-white matter interface appears intact.? ? Skull and face:? Calvarium and facial bones appear intact, without suspicious lesions.? Orbits appear normal.? ? Sinuses:? Sinuses and mastoids are clear.? ? HEAD CT ANGIOGRAPHY:? Anterior circulation:? Intracranial internal carotid arteries are normal in size and flow.? The flow within the paired anterior cerebral arteries is normal and symmetric.? The flow within the middle cerebral arteries is normal and symmetric.? The anterior communicating artery is seen.? No aneurysms are seen.? ? Posterior circulation:? Visualized portions of the vertebral arteries demonstrate normal caliber, and join to form a normal appearing basilar artery.? Flow within the posterior cerebral arteries is normal and symmetric.? No aneurysms are seen.? ? NECK CT ANGIOGRAPHY:? Carotid system:? The great vessels demonstrate a conventional anatomy as they arise from the aortic arch.? The origins of the common carotid arteries appear patent.? The common carotid arteries demonstrate normal caliber and courses.? The bifurcation regions are both widely patent.? The internal carotid arteries demonstrate normal calibers and courses.? ? Posterior circulation:? The origins of the vertebral arteries both appear widely patent.? The more superior extracranial portions of both vertebral arteries also demonstrate normal courses and calibers.? They join to form a normal appearing basilar artery.? ? Soft tissues:? Visualized neck soft tissues demonstrate no suspicious abnormalities.? ? Bones:? No suspicious bony lesions.? Visualized cervical spine appears normally aligned.? IMPRESSION:? ? 1. No evidence acute stroke, hemorrhage, or mass. ? 2. Unremarkable CTA head.? No stenosis, aneurysm, occlusion, or focal filling defect. ? 3. Widely patent internal carotids.? Otherwise unremarkable CTA neck.? ? Comment: Findings were discussed with Dr. Pierre on? 02/28/2021 at 1038 hours ? Any quantitative measurements of stenosis were performed using NASCET criteria.? ? ? Dictated by: Stephon Graham M.D. on 02/28/2021 at 10:35 ? ? Approved by: Stephon Graham M.D. on 02/28/2021 at 10:39 ? MRI brain: Radiologist's Impression: [address] [address] Magnetic Resonance Report Signed Patient: Eden Hadley MR#: [id number] : 1940 Acct:[id number] Age/Sex: 80 / F Date of Service: 02/28/21 Loc: ED Accession Number: [id number] ?? Procedure: MR head/brain wo con Ordering Provider: Ronaldo Pierre MD PROCEDURE:? MR HEAD/BRAIN WO CON ? INDICATIONS:? Expressive aphasia ? TECHNIQUE:? Non-contrast axial T1 spin echo, axial T2 fast spin echo, sagittal and axial FLAIR, coronal T2 fast spin echo, axial gradient echo, axial diffusion and ADC through the brain.? ? COMPARISON:? None. ? FINDINGS:? Image quality:? Excellent.? ? CSF spaces:? Ventricles appear symmetric in size and shape.? Basal cisterns are patent.? No extra-axial fluid collections.? ? Brain:? Mild global cerebral volume loss.? No intracranial bleeds or mass effects.? Midline structures normal in configuration.? Diffusion-weighted images show no acute ischemic insults.? No chronic ischemic insults.? Normal intravascular flow voids are present.? ? Skull and face:? Calvarial bone marrow is normal in signal.? Orbits are normal.? ? Sinuses:? Sinuses and mastoids are clear.? ? IMPRESSION:? No findings of acute infarct or other acute intracranial abnormality.? Mild global cerebral volume loss. ? ? Dictated by: Jass Molina M.D. on 02/28/2021 at 11:30 ? ? Approved by: Jass Molina M.D. on 02/28/2021 at 11:31 ? Echocardiogram: Radiologist's Impression: [place] [address] Echocardiography Report Signed Patient: Eden Hadley MR#: [id number] : 1940 Acct:[id number] Age/Sex: 80 / F Date of Service: 02/28/21 Loc: ED Accession Number: [id number] ?? Procedure: EC echo doppler complete Ordering Provider: Ronaldo Pierre MD ? [facility] +[facility] : ? :? [address] ? : ? : : ? :? [place], [place] ? : ? : : ? :? [address] ? : ? : : ? : ? Phone: [phone] : ? : [phone]? [phone]? +---------+ ? Echocardiogram Report + + :Name: EDEN HADLEY ? Study Date: 02/28/2021? Height: 63 in? : :[facility] ? ? ReadingLocation:? Weight: 149 lb : : ? Gender: Female? BSA: 1.7 m2? ? : :: 1940 ? Age: 80 yrs ? BP: 186/89 mmHg: :Reason For Study: TIA? : :Ordering Physician:? : :GABBYANTHONY? Performed By: Mateus Diez ? : :Referring: RONALDO PIERRE ? : + + Interpretation Summary The ejection fraction is estimated to be 55-60%. Diastolic parameters suggest probable normal left ventricular diastolic function and normal filling pressures. ? The right ventricle is normal in size and function. The right atrium is mildly dilated. ? There is mild mitral regurgitation. ? Unable to estimate PASP. ? Procedure: ? A two-dimensional transthoracic echocardiogram with color flow and Doppler was performed. The study quality was technically adequate. The apical views were difficult to obtain and are suboptimal in quality. There is no prior echocardiogram noted for this patient. Aquisition of apical window technically difficult. The patient was in normal sinus rhythm during the exam. ? Left Ventricle: ? The left ventricle is normal in size. There is borderline asymmetric left ventricular hypertrophy. The ejection fraction is estimated to be 55-60%. Diastolic parameters suggest probable normal left ventricular diastolic function and normal filling pressures. Right Ventricle: ? The right ventricle is normal in size and function. Atria: ? The left atrial size is normal. The right atrium is mildly dilated. There is no Doppler evidence for an interatrial shunt. Mitral Valve: ? The mitral valve leaflets appear mildly thickened, but open well. There is mild mitral regurgitation. Aortic Valve: ? The aortic valve is trileaflet. The aortic valve opens well. There is no aortic valve stenosis. There is trace aortic regurgitation. Tricuspid Valve: ? The tricuspid valve is normal. There is mild tricuspid regurgitation. Pulmonary artery pressures cannot be estimated because of the lack of a measurable TR jet velocity. Pulmonic Valve: ? The pulmonic valve is not well seen, but is grossly normal. Great Vessels: ? The aortic root is normal size. The ascending aorta is normal in size. The aortic arch is normal in size. The IVC is of normal diameter and collapses greater than 50% with a sniff. This suggests a low right atrial pressure of 3 mm Hg. Pericardium/ Pleura ? There is no pericardial effusion. There is an anterior echo-free space consistent with a fat pad. There is no pleural effusion. ? MMode/2D Measurements & Calculations LVIDd: 4.4 cm? LVOT diam: 1.8 cm LVIDs: 2.9 cm? Ao root diam: 2.7 cm FS: 34.1 % ? asc Aorta Diam: 3.4 cm IVSd: 0.90 cm? Ao Arch Diam (Prox Trans): 2.8 cm LVPWd: 1.1 cm LV navarrete. diameter/BSA (cm/m^2): 2.6 LV sys. diameter/BSA (cm/m^2): 1.7 ? LA A2 area: 14.4 cm2 ? RA long axis: 5.6 cm LA A4 area: 15.2 cm2 ? RA area: 16.0 cm2 LA length (vol): 4.9 cm? RA vol: 38.8 ml LA vol: 38.2 ml? RA : 22.7 ml/m2 LA vol index: 22.4 ml/m2 ? TAPSE_phl: 3.4 cm ? Doppler Measurements & Calculations Ao V2 max: 126.0 cm/sec? LVOT Max Erich: 93.3 cm/sec Ao V2 mean: 90.9 cm/sec? LV V1 max P.5 mmHg Ao max P.0 mmHg? LV V1 VTI: 27.0 cm Ao mean P.0 mmHg ? HELEN(I,D): 1.9 cm2 Ao V2 VTI: 35.4 cm ? HELEN(V,D): 1.9 cm2 ? sev ratio: 0.76 ? HELEN indexed to BSA (cm^2/m^2): 1.1 ? MV E max erich: 66.4 cm/sec? TR max erich: 194.1 cm/sec MV A max erich: 92.5 cm/sec? TR max P.1 mmHg MV E/A: 0.72 Med Peak E' Erich: 5.1 cm/sec E/E' med: 12.9 Lat Peak E' Erich: 10.9 cm/sec E/E' lat: 6.1 E/e' average: 9.5 MV dec time: 0.23 sec ? SV(LVOT): 68.7 ml? AV VR_phl: 0.74 ? HELEN(VTI)/BSA_phl: 1.1 ? Reading Physician:03:10 PM ECG Data Interpretation: Normal sinus rhythm, no ST elevation or depression. Rate 60 MDM Narrative Medical decision making narrative: Will need admission/transfer as patient did not have any confusion with the expressive aphasia. I did review with tele stroke. We do not have beds here available. Patient understands will need transfer. Symptoms have resolved. No tPA. Stroke Core Measures Exclusion Criteria TPA in CVA: Unknown Onset of Symptoms (Symptoms resolved) Discharge Plan Departure Patient Disposition: [facility] Clinical Impression: Transient cerebral ischemia Prescriptions: No Action latanoprost 0.005 % Drops 1 drp EYE-BOTH DAILY 0RF Label Comments: pm meloxicam 15 mg Tablet 15 mg PO DAILY PRN (Reason: Pain) 0RF diphenhydramine-acetaminophen [Acetaminophen PM] 25-500 mg Tablet 1 tab PO BEDTIME 0RF Label Comments: PM Combigan 0.2-0.5 % Drops 1 drp EYE-BOTH BID 0RF fluoxetine 20 mg Capsule 20 mg PO DAILY 0RF levothyroxine 88 mcg Tablet 100 mcg PO DAILY 0RF atorvastatin 40 mg Tablet 40 mg PO DAILY 0RF cyanocobalamin (vitamin B-12) [Vitamin B-12] 2,500 mcg Tablet, Sublingual 2,500 mcg SUBLINGUAL DAILY 0RF cholecalciferol (vitamin D3) [Vitamin D3] 2,000 unit Tablet 2,000 unit PO DAILY 0RF coenzyme Q10 [CoQ-10] 100 mg Capsule 300 mg PO DAILY 0RF Probiotic 3 billion cell Capsule 3,000 mmu cells PO DAILY 0RF Referrals: Norma Templeton PA-C [Primary Care Provider] -
[2021-02-28 10:29] LABS: Add Manual Diff / Slide Review NO; Basophils Absolute Auto 0 /uL (0-100); Basophils Percent Auto 0.6 % (0-2); Eosinophils Absolute Auto 100 /uL (0-450); Eosinophils Percent Auto 1.2 % (2-4); Hematocrit 38.6 % (36-46); Hemoglobin 13.2 g/dL (12.0-16.0); Lymphocytes Absolute Auto 1200 /uL (1100-4500); Lymphocytes Percent Auto 19.5 % (25-40); Mean Corpuscular HGB Conc 34.3 % (30-36); Mean Corpuscular Hemoglobin 31.1 PG (26-34); Mean Corpuscular Volume 90.5 fL (80-100); Monocytes Absolute Auto 700 /uL (0-900); Monocytes Percent Auto 11.1 % (3-14); Neutrophils Absolute Auto 4200 /uL (1500-7000); Neutrophils Percent Auto 67.6 % (50-75); Platelet Count 201 X10^3/uL (150-400); Red Blood Cell Count 4.26 X10^6/uL (4.0-5.2); Red Cell Distribution Width 13.3 % (11.6-14.8); White Blood Cell Count 6.2 X10^3/uL (4.5-11.0)
[2021-02-28 10:38] LABS: Alanine Aminotransferase 19 IU/L (<35); Albumin 4.1 g/dL (3.5-5.0); Albumin Globulin Ratio 1.6 (1.0-2.8); Alkaline Phosphatase 82 U/L (38-126); Aspartate Aminotransferase 26 IU/L (14-36); BUN Creatinine Ratio 18.2 (6-22); Bilirubin Total 0.8 mg/dL (0.2-1.3); Blood Urea Nitrogen 12 mg/dL (7-17); Calcium 8.7 mg/dL (8.4-10.2); Carbon Dioxide 24 mmol/L (22-32); Chloride 106 mmol/L (98-107); Creatine Kinase 57 U/L (30-135); Estimated Glomerular Filt Rate > 60.0 mL/min (>60); Globulin 2.6 g/dL (1.7-4.1); Glucose 99 mg/dL (80-110); HEMOLYSIS < 15 (0-50); Sodium 138 mmol/L (137-145); Total Protein 6.7 g/dL (6.3-8.2)
[2021-02-28 10:44] LABS: INR 1.1 (0.9-1.3)
[2021-02-28 10:47] LABS: PTT Partial Thromboplastin Tim 29 SECONDS (26.4-36.2)
[2021-02-28 10:50] LABS: Troponin I < 0.012 ng/mL (0.01-0.034)
--- NOTE | 2021-02-28 11:45 | DI.ECHO.S_ITS ---
[place] [facility]---------+ [facility] +---------+ : : [address] : : : : [id number] : : : : Phone: [phone] Echocardiogram Report + + :Name: EDEN AUSTIN Study Date: 02/28/2021 Height: 63 in : :[facility] ReadingLocation: Weight: 149 lb : : Gender: Female BSA: 1.7 m2 : :: 1940 Age: 80 yrs BP: 186/89 mmHg: :Reason For Study: TIA : :Ordering Physician: : :JOSE Performed By: Mateus Diez : :Referring: RONALDO PIERRE : + + Interpretation Summary The ejection fraction is estimated to be 55-60%. Diastolic parameters suggest probable normal left ventricular diastolic function and normal filling pressures. The right ventricle is normal in size and function. The right atrium is mildly dilated. There is mild mitral regurgitation. Unable to estimate PASP. Procedure: A two-dimensional transthoracic echocardiogram with color flow and Doppler was performed. The study quality was technically adequate. The apical views were difficult to obtain and are suboptimal in quality. There is no prior echocardiogram noted for this patient. Aquisition of apical window technically difficult. The patient was in normal sinus rhythm during the exam. Left Ventricle: The left ventricle is normal in size. There is borderline asymmetric left ventricular hypertrophy. The ejection fraction is estimated to be 55-60%. Diastolic parameters suggest probable normal left ventricular diastolic function and normal filling pressures. Right Ventricle: The right ventricle is normal in size and function. Atria: The left atrial size is normal. The right atrium is mildly dilated. There is no Doppler evidence for an interatrial shunt. Mitral Valve: The mitral valve leaflets appear mildly thickened, but open well. There is mild mitral regurgitation. Aortic Valve: The aortic valve is trileaflet. The aortic valve opens well. There is no aortic valve stenosis. There is trace aortic regurgitation. Tricuspid Valve: The tricuspid valve is normal. There is mild tricuspid regurgitation. Pulmonary artery pressures cannot be estimated because of the lack of a measurable TR jet velocity. Pulmonic Valve: The pulmonic valve is not well seen, but is grossly normal. Great Vessels: The aortic root is normal size. The ascending aorta is normal in size. The aortic arch is normal in size. The IVC is of normal diameter and collapses greater than 50% with a sniff. This suggests a low right atrial pressure of 3 mm Hg. Pericardium/ Pleura There is no pericardial effusion. There is an anterior echo-free space consistent with a fat pad. There is no pleural effusion. MMode/2D Measurements & Calculations LVIDd: 4.4 cm LVOT diam: 1.8 cm LVIDs: 2.9 cm Ao root diam: 2.7 cm FS: 34.1 % asc Aorta Diam: 3.4 cm IVSd: 0.90 cm Ao Arch Diam (Prox Trans): 2.8 cm LVPWd: 1.1 cm LV navarrete. diameter/BSA (cm/m^2): 2.6 LV sys. diameter/BSA (cm/m^2): 1.7 LA A2 area: 14.4 cm2 RA long axis: 5.6 cm LA A4 area: 15.2 cm2 RA area: 16.0 cm2 LA length (vol): 4.9 cm RA vol: 38.8 ml LA vol: 38.2 ml RA : 22.7 ml/m2 LA vol index: 22.4 ml/m2 TAPSE_phl: 3.4 cm Doppler Measurements & Calculations Ao V2 max: 126.0 cm/sec LVOT Max Erich: 93.3 cm/sec Ao V2 mean: 90.9 cm/sec LV V1 max P.5 mmHg Ao max P.0 mmHg LV V1 VTI: 27.0 cm Ao mean P.0 mmHg HELEN(I,D): 1.9 cm2 Ao V2 VTI: 35.4 cm HELEN(V,D): 1.9 cm2 sev ratio: 0.76 HELEN indexed to BSA (cm^2/m^2): 1.1 MV E max erich: 66.4 cm/sec TR max erich: 194.1 cm/sec MV A max erich: 92.5 cm/sec TR max P.1 mmHg MV E/A: 0.72 Med Peak E' Erich: 5.1 cm/sec E/E' med: 12.9 Lat Peak E' Erich: 10.9 cm/sec E/E' lat: 6.1 E/e' average: 9.5 MV dec time: 0.23 sec SV(LVOT): 68.7 ml AV VR_phl: 0.74 HELEN(VTI)/BSA_phl: 1.1 Reading Physician:03:10 PM
--- NOTE | 2021-02-28 11:46 | DI.MRI.S_ITS ---
PROCEDURE: MR HEAD/BRAIN WO CON INDICATIONS: Expressive aphasia TECHNIQUE: Non-contrast axial T1 spin echo, axial T2 fast spin echo, sagittal and axial FLAIR, coronal T2 fast spin echo, axial gradient echo, axial diffusion and ADC through the brain. COMPARISON: None. FINDINGS: Image quality: Excellent. CSF spaces: Ventricles appear symmetric in size and shape. Basal cisterns are patent. No extra-axial fluid collections. Brain: Mild global cerebral volume loss. No intracranial bleeds or mass effects. Midline structures normal in configuration. Diffusion-weighted images show no acute ischemic insults. No chronic ischemic insults. Normal intravascular flow voids are present. Skull and face: Calvarial bone marrow is normal in signal. Orbits are normal. Sinuses: Sinuses and mastoids are clear. IMPRESSION: No findings of acute infarct or other acute intracranial abnormality. Mild global cerebral volume loss. Dictated by: Jass Molina M.D. on 02/28/2021 at 11:30 Approved by: Jass Molina M.D. on 02/28/2021 at 11:31
[2021-02-28 14:25] LABS: COVID19 - ADMIT (NP swab/PCR) Negative (Negative)
== END 2021-02-28 17:59 | disposition short-term general hospital (02) ==
PROVIDERS: Emergency Provider Emergency Medicine; PCP Physician Assistant
DX: G45.9 Transient cerebral ischemic attack, unspecified (principal); R03.0 Elevated blood-pressure reading, without diagnosis of hypertension; Z20.822 Contact with and (suspected) exposure to COVID-19
CPT/HCPCS: 64450; 70450; 70496; 70498; 70551; 80053; 81003; 82550; 82962; 84484; 85025; 85610; 85730; 87635; 93005; 93306; 99285; C9803; J2250; J3010

== ENCOUNTER → 2021-03-18 07:51 | Outpatient (CLI) | payer MEDICARE, OTHER, SELFPAY ==
[2021-03-18 08:46] LABS: Add Manual Diff / Slide Review NO; Basophils Absolute Auto 0 /uL (0-100); Basophils Percent Auto 0.8 % (0-2); Eosinophils Absolute Auto 100 /uL (0-450); Eosinophils Percent Auto 2.7 % (2-4); Hematocrit 40.4 % (36-46); Hemoglobin 13.7 g/dL (12.0-16.0); Lymphocytes Absolute Auto 1200 /uL (1100-4500); Lymphocytes Percent Auto 27.1 % (25-40); Mean Corpuscular HGB Conc 33.9 % (30-36); Mean Corpuscular Hemoglobin 30.8 PG (26-34); Mean Corpuscular Volume 90.9 fL (80-100); Monocytes Absolute Auto 600 /uL (0-900); Monocytes Percent Auto 13.9 % (3-14); Neutrophils Absolute Auto 2500 /uL (1500-7000); Neutrophils Percent Auto 55.5 % (50-75); Platelet Count 217 X10^3/uL (150-400); Red Blood Cell Count 4.44 X10^6/uL (4.0-5.2); Red Cell Distribution Width 13.5 % (11.6-14.8); White Blood Cell Count 4.4 X10^3/uL (4.5-11.0)
[2021-03-18 08:58] LABS: Hemoglobin A1C% w Est Avg Glu 5.1 % (4.0-6.0)
[2021-03-18 09:13] LABS: Alanine Aminotransferase 21 IU/L (<35); Albumin 4.1 g/dL (3.5-5.0); Albumin Globulin Ratio 1.6 (1.0-2.8); Alkaline Phosphatase 85 U/L (38-126); Aspartate Aminotransferase 26 IU/L (14-36); BUN Creatinine Ratio 23.1 (6-22); Bilirubin Total 0.7 mg/dL (0.2-1.3); Blood Urea Nitrogen 18 mg/dL (7-17); Calcium 9.3 mg/dL (8.4-10.2); Carbon Dioxide 28 mmol/L (22-32); Chloride 106 mmol/L (98-107); Cholesterol 156 mg/dL (140-199); Estimated Glomerular Filt Rate > 60.0 mL/min (>60); Globulin 2.6 g/dL (1.7-4.1); Glucose 100 mg/dL (80-110); HDL Cholesterol 52 mg/dL (40-60); HEMOLYSIS < 15 (0-50); LDL Cholesterol Calculated 85 mg/dL (<100); Potassium 4.4 mmol/L (3.4-5.1); Sodium 140 mmol/L (137-145); Total Protein 6.7 g/dL (6.3-8.2); Triglycerides 96 mg/dL (35-150)
[2021-03-18 09:45] LABS: Thyroid Stimulating Hormone 1.32 uIU/mL (0.47-4.68)
== END ==
PROVIDERS: PCP Physician Assistant; Referring Provider Physician Assistant; Visit Provider Physician Assistant
DX: E03.9 Hypothyroidism, unspecified (principal); E78.5 Hyperlipidemia, unspecified
CPT/HCPCS: 36415; 80053; 80061; 83036; 84443; 85025

== ENCOUNTER → 2021-06-02 06:59 | Outpatient (CLI) | payer MEDICARE, OTHER, SELFPAY ==
[2021-06-02 08:16] LABS: BUN Creatinine Ratio 23.9 (6-22); Blood Urea Nitrogen 16 mg/dL (7-17); Calcium 8.7 mg/dL (8.4-10.2); Carbon Dioxide 28 mmol/L (22-32); Chloride 106 mmol/L (98-107); Estimated Glomerular Filt Rate > 60.0 mL/min (>60); Glucose 103 mg/dL (80-110); HEMOLYSIS < 15 (0-50); Sodium 140 mmol/L (137-145)
[2021-06-02 09:13] LABS: Add Manual Diff / Slide Review NO; Basophils Absolute Auto 0 /uL (0-100); Basophils Percent Auto 0.6 % (0-2); Eosinophils Absolute Auto 100 /uL (0-450); Eosinophils Percent Auto 2.6 % (2-4); Hematocrit 39.2 % (36-46); Hemoglobin 13.4 g/dL (12.0-16.0); Lymphocytes Absolute Auto 1500 /uL (1100-4500); Mean Corpuscular HGB Conc 34.1 % (30-36); Mean Corpuscular Hemoglobin 30.7 PG (26-34); Monocytes Absolute Auto 600 /uL (0-900); Monocytes Percent Auto 12.5 % (3-14); Neutrophils Absolute Auto 2700 /uL (1500-7000); Neutrophils Percent Auto 54.3 % (50-75); Platelet Count 212 X10^3/uL (150-400); Red Blood Cell Count 4.36 X10^6/uL (4.0-5.2); Red Cell Distribution Width 13.1 % (11.6-14.8); White Blood Cell Count 4.9 X10^3/uL (4.5-11.0)
== END ==
PROVIDERS: PCP Physician Assistant; Referring Provider Orthopaedic Surgery; Visit Provider Orthopaedic Surgery
DX: Z01.812 Encounter for preprocedural laboratory examination (principal)
CPT/HCPCS: 36415; 80048; 85025

== ENCOUNTER → 2022-03-07 08:55 | Outpatient (CLI) | payer MEDICARE, OTHER, SELFPAY ==
--- NOTE | 2022-03-07 | DI.RAD.S_ITS ---
PROCEDURE: XR KNEE RT 3V INDICATIONS: PAIN TECHNIQUE: 3 views of the knee were acquired. COMPARISON: None. FINDINGS: Bones: No fractures or dislocations. No suspicious bony lesions. Mild tricompartmental periarticular osteophyte formation is present. Soft tissues: No joint effusion. No suspicious soft tissue calcifications. IMPRESSION: Osteoarthritis. No acute fracture. No osseous lesion. If symptoms and/or clinical suspicion for pathology persist, further assessment with repeat, or advanced imaging (e.g., CT, MRI, or bone scan) may be helpful for further assessment. Dictated by: Janie Parks M.D. on 03/07/2022 at 10:28 Transcribed by: EMILE on 03/07/2022 at 10:29 Approved by: Janie Parks M.D. on 03/07/2022 at 15:27
--- NOTE | 2022-03-07 08:58 | DI.RAD.S_ITS ---
PROCEDURE: XR KNEE LT 3V INDICATIONS: PAIN TECHNIQUE: 3 views of the knee were acquired. COMPARISON: None. FINDINGS: Bones: No fractures or dislocations. No suspicious bony lesions. Mild tricompartmental periarticular osteophyte formation. Soft tissues: No joint effusion. No suspicious soft tissue calcifications. IMPRESSION: Osteoarthritis. No acute fracture. No osseous lesion. If symptoms and/or clinical suspicion for pathology persist, further assessment with repeat, or advanced imaging (e.g., CT, MRI, or bone scan) may be helpful for further assessment. Dictated by: Janie Parks M.D. on 03/07/2022 at 10:29 Transcribed by: EMILE on 03/07/2022 at 10:29 Approved by: Janie Parks M.D. on 03/07/2022 at 15:28
== END ==
PROVIDERS: PCP Family Medicine; Referring Provider Family Medicine; Visit Provider Family Medicine
DX: M25.561 Pain in right knee (principal); M17.0 Bilateral primary osteoarthritis of knee; M25.562 Pain in left knee; R19.5 Other fecal abnormalities; G45.9 Transient cerebral ischemic attack, unspecified; E03.9 Hypothyroidism, unspecified; E78.5 Hyperlipidemia, unspecified; M25.59 Pain in other specified joint; G89.29 Other chronic pain
CPT/HCPCS: 73562

== ENCOUNTER → 2022-03-09 07:13 | Outpatient (CLI) | payer MEDICARE, OTHER, SELFPAY ==
[2022-03-09 08:15] LABS: Alanine Aminotransferase 19 IU/L (<35); Albumin 4.1 g/dL (3.5-5.0); Albumin Globulin Ratio 1.3 (1.0-2.8); Alkaline Phosphatase 96 U/L (38-126); Aspartate Aminotransferase 31 IU/L (14-36); BUN Creatinine Ratio 21.7 (6-22); Bilirubin Total 0.8 mg/dL (0.2-1.3); Blood Urea Nitrogen 15 mg/dL (7-17); Calcium 8.8 mg/dL (8.4-10.2); Carbon Dioxide 24 mmol/L (22-32); Chloride 105 mmol/L (98-107); Cholesterol 139 mg/dL (140-199); Estimated Glomerular Filt Rate > 60 mL/min (>60); Globulin 3.1 g/dL (1.7-4.1); Glucose 94 mg/dL (80-110); HDL Cholesterol 40 mg/dL (40-60); HEMOLYSIS < 15 (0-50); LDL Cholesterol Calculated 77 mg/dL (<100); Potassium 3.9 mmol/L (3.4-5.1); Sodium 140 mmol/L (137-145); Total Protein 7.2 g/dL (6.3-8.2); Triglycerides 112 mg/dL (35-150)
[2022-03-09 08:20] LABS: Add Manual Diff / Slide Review NO; Basophils Absolute Auto 0 /uL (0-100); Basophils Percent Auto 0.8 % (0-2); Eosinophils Absolute Auto 100 /uL (0-450); Eosinophils Percent Auto 2.1 % (2-4); Hematocrit 39.2 % (36-46); Hemoglobin 13.4 g/dL (12.0-16.0); Lymphocytes Absolute Auto 1300 /uL (1100-4500); Lymphocytes Percent Auto 22.2 % (25-40); Mean Corpuscular HGB Conc 34.1 % (30-36); Mean Corpuscular Hemoglobin 30.8 PG (26-34); Mean Corpuscular Volume 90.4 fL (80-100); Monocytes Absolute Auto 800 /uL (0-900); Monocytes Percent Auto 13.1 % (3-14); Neutrophils Absolute Auto 3700 /uL (1500-7000); Neutrophils Percent Auto 61.8 % (50-75); Platelet Count 241 X10^3/uL (150-400); Red Blood Cell Count 4.34 X10^6/uL (4.0-5.2); Red Cell Distribution Width 13.2 % (11.6-14.8); White Blood Cell Count 5.9 X10^3/uL (4.5-11.0)
[2022-03-09 08:38] LABS: Erythrocyte Sedimentation Rate 16 MM/HR (0-20)
[2022-03-09 08:55] LABS: TSH w/ Reflex to FT4 2.51 uIU/mL (0.47-4.68)
[2022-03-11 15:57] LABS: ANA Screen, IFA Negative (.)
== END ==
PROVIDERS: PCP Family Medicine; Referring Provider Family Medicine; Visit Provider Family Medicine
DX: E03.9 Hypothyroidism, unspecified (principal); E78.5 Hyperlipidemia, unspecified; R19.5 Other fecal abnormalities; G89.29 Other chronic pain; M25.59 Pain in other specified joint; G45.9 Transient cerebral ischemic attack, unspecified
CPT/HCPCS: 36415; 80053; 80061; 84443; 85025; 85651; 86038

== ENCOUNTER → 2022-09-08 09:38 | Outpatient (CLI) | payer MEDICARE, OTHER, SELFPAY ==
[2022-09-08 10:57] LABS: Cholesterol 180 mg/dL (140-199); HDL Cholesterol 57 mg/dL (40-60); LDL Cholesterol Calculated 99 mg/dL (<100); Triglycerides 122 mg/dL (35-150)
[2022-09-08 11:24] LABS: Thyroid Stimulating Hormone 1.44 uIU/mL (0.47-4.68)
== END ==
PROVIDERS: PCP Nurse Practitioner Family; Referring Provider Nurse Practitioner Family; Visit Provider Nurse Practitioner Family
DX: E03.9 Hypothyroidism, unspecified (principal)
CPT/HCPCS: 36415; 80061; 84443

== ENCOUNTER → 2022-09-14 10:01 | Outpatient (CLI) | payer MEDICARE, OTHER, SELFPAY ==
--- NOTE | 2022-09-14 10:03 | DI.RAD.S_ITS ---
PROCEDURE: XR SHOULDER LT MIN 2V INDICATIONS: LEFT SHOULDER PAIN TECHNIQUE: 3 views of the shoulder were acquired. COMPARISON: [facility], CR, XR SHOULDER RT MIN 2V, 12/17/2018, 10:37. FINDINGS: Bones: No fractures or dislocations. Moderate acromioclavicular joint and glenohumeral joint osteoarthritic changes are seen. Benign-appearing ext ostosis involving posterior inferior aspect of the humeral head is seen. Visualized ribs appear intact. Soft tissues: Small calcifications are noted superior to glenohumeral joint IMPRESSION: No acute shoulder fracture or dislocation. Moderate shoulder joint osteoarthritis. Possible calcific tendinitis involving rotator cuff tendons. Benign-appearing ext ostosis involving inferior aspect of humeral head. Dictated by: Jonathon Davila M.D. on 09/14/2022 at 14:54 Approved by: Jonathon Davila M.D. on 09/14/2022 at 14:56
== END ==
PROVIDERS: PCP Nurse Practitioner Family; Referring Provider Nurse Practitioner Family; Visit Provider Nurse Practitioner Family
DX: M19.012 Primary osteoarthritis, left shoulder (principal); M25.512 Pain in left shoulder
CPT/HCPCS: 73030

== ENCOUNTER → 2023-03-30 07:06 | Outpatient (CLI) | payer MEDICARE, OTHER, SELFPAY ==
[2023-03-30 08:55] LABS: Alanine Aminotransferase 17 IU/L (<35); Albumin 3.9 g/dL (3.5-5.0); Albumin Globulin Ratio 1.4 (1.0-2.8); Alkaline Phosphatase 81 U/L (38-126); Aspartate Aminotransferase 22 IU/L (14-36); Bilirubin Total 0.7 mg/dL (0.2-1.3); Blood Urea Nitrogen 20 mg/dL (7-17); Calcium 9.1 mg/dL (8.4-10.2); Carbon Dioxide 26 mmol/L (22-32); Chloride 102 mmol/L (98-107); Estimated Glomerular Filt Rate > 60 mL/min (>60); Globulin 2.7 g/dL (1.7-4.1); HEMOLYSIS < 15 (0-50); Potassium 4.2 mmol/L (3.4-5.1); Sodium 137 mmol/L (137-145); Total Protein 6.6 g/dL (6.3-8.2)
[2023-03-30 09:08] LABS: Glucose 96 mg/dL (80-110)
[2023-03-30 09:23] LABS: TSH w/ Reflex to FT4 3.54 uIU/mL (0.47-4.68)
== END ==
PROVIDERS: PCP Nurse Practitioner Family; Referring Provider Nurse Practitioner Family; Visit Provider Nurse Practitioner Family
DX: Z51.81 Encounter for therapeutic drug level monitoring (principal); E03.9 Hypothyroidism, unspecified; E78.5 Hyperlipidemia, unspecified
CPT/HCPCS: 36415; 80053; 84443

== ENCOUNTER → 2023-08-20 12:31 | Outpatient (CLI) | payer MEDICARE, OTHER, SELFPAY ==
--- NOTE | 2023-08-20 12:33 | DI.RAD.S_ITS ---
PROCEDURE: XR SHOULDER LT MIN 2V INDICATIONS: bilateral shoulder pain TECHNIQUE: 3 views of the shoulder were acquired. COMPARISON: [facility], CR, XR SHOULDER LT MIN 2V, 09/14/2022, 10:11. [facility], CR, XR SHOULDER RT MIN 2V, 12/17/2018, 10:37. FINDINGS: Bones: No fractures or dislocations. No suspicious bony lesions. Visualized ribs appear intact. Glenohumeral and acromioclavicular joint space narrowing with associated osteophytosis. Subchondral cystic change and sclerosis is present of the glenoid and humeral head. Soft tissues: No suspicious soft tissue calcifications. IMPRESSION: Severe glenohumeral osteoarthritis, progressed from prior. Dictated by: Shant Blanco M.D. on 08/20/2023 at 14:30 Approved by: Shant Blanco M.D. on 08/20/2023 at 14:30
--- NOTE | 2023-08-20 12:33 | DI.RAD.S_ITS ---
PROCEDURE: XR SHOULDER RT MIN 2V INDICATIONS: bilateral shoulder pain TECHNIQUE: 3 views of the shoulder were acquired. COMPARISON: [facility], CR, XR SHOULDER LT MIN 2V, 09/14/2022, 10:11. [facility], CR, XR SHOULDER RT MIN 2V, 12/17/2018, 10:37. FINDINGS: Bones: No fractures or dislocations. No suspicious bony lesions. Visualized ribs appear intact. Glenohumeral and acromioclavicular joint space narrowing with associated osteophytosis. Subchondral cystic change and early bony deformity of the femoral head and glenoid. Soft tissues: No suspicious soft tissue calcifications. IMPRESSION: Severe right glenohumeral osteoarthritis. Dictated by: Shant Blanco M.D. on 08/20/2023 at 14:29 Approved by: Shant Blanco M.D. on 08/20/2023 at 14:30
== END ==
PROVIDERS: PCP Nurse Practitioner Family; Referring Provider Nurse Practitioner Family; Visit Provider Nurse Practitioner Family
DX: M19.011 Primary osteoarthritis, right shoulder (principal); M19.012 Primary osteoarthritis, left shoulder; M25.511 Pain in right shoulder; M25.512 Pain in left shoulder
CPT/HCPCS: 73030

== ENCOUNTER → 2023-09-28 06:57 | Outpatient (CLI) | payer MEDICARE, OTHER, SELFPAY ==
[2023-09-28 07:34] LABS: Add Manual Diff / Slide Review NO; Basophils Absolute Auto 100 /uL (0-100); Basophils Percent Auto 1.2 % (0-2); Eosinophils Absolute Auto 200 /uL (0-450); Eosinophils Percent Auto 2.2 % (2-4); Hematocrit 41.5 % (36-46); Hemoglobin 14.2 g/dL (12.0-16.0); Lymphocytes Absolute Auto 1500 /uL (1100-4500); Lymphocytes Percent Auto 18.9 % (25-40); Mean Corpuscular HGB Conc 34.1 % (30-36); Mean Corpuscular Hemoglobin 31.3 PG (26-34); Mean Corpuscular Volume 91.8 fL (80-100); Monocytes Absolute Auto 900 /uL (0-900); Monocytes Percent Auto 12.2 % (3-14); Neutrophils Absolute Auto 5100 /uL (1500-7000); Neutrophils Percent Auto 65.5 % (50-75); Platelet Count 334 X10^3/uL (150-400); Red Blood Cell Count 4.52 X10^6/uL (4.0-5.2); Red Cell Distribution Width 14.4 % (11.6-14.8); White Blood Cell Count 7.7 X10^3/uL (4.5-11.0)
[2023-09-28 08:13] LABS: Alanine Aminotransferase 20 IU/L (<35); Albumin 4.2 g/dL (3.5-5.0); Albumin Globulin Ratio 1.6 (1.0-2.8); Alkaline Phosphatase 93 U/L (38-126); Aspartate Aminotransferase 25 IU/L (14-36); BUN Creatinine Ratio 20.4 (6-22); Bilirubin Total 0.8 mg/dL (0.2-1.3); Blood Urea Nitrogen 19 mg/dL (7-17); Calcium 9.4 mg/dL (8.4-10.2); Carbon Dioxide 27 mmol/L (22-32); Chloride 106 mmol/L (98-107); Estimated Glomerular Filt Rate > 60 mL/min (>60); Globulin 2.7 g/dL (1.7-4.1); Glucose 106 mg/dL (80-110); HEMOLYSIS < 15 (0-50); Potassium 4.6 mmol/L (3.4-5.1); Sodium 139 mmol/L (137-145); Total Protein 6.9 g/dL (6.3-8.2)
[2023-09-28 09:03] LABS: TSH w/ Reflex to FT4 0.88 uIU/mL (0.47-4.68)
== END ==
PROVIDERS: PCP Nurse Practitioner Family; Referring Provider Nurse Practitioner Family; Visit Provider Nurse Practitioner Family
DX: E03.9 Hypothyroidism, unspecified (principal); R42 Dizziness and giddiness; D64.9 Anemia, unspecified
CPT/HCPCS: 36415; 80053; 84443; 85025

== ENCOUNTER → 2023-12-28 06:57 | Outpatient (CLI) | payer MEDICARE, OTHER, SELFPAY ==
[2023-12-28 08:47] LABS: Thyroid Stimulating Hormone 3.79 uIU/mL (0.47-4.68)
== END ==
PROVIDERS: PCP Nurse Practitioner Family; Referring Provider Nurse Practitioner Family; Visit Provider Nurse Practitioner Family
DX: E03.9 Hypothyroidism, unspecified (principal)
CPT/HCPCS: 36415; 84443

== ENCOUNTER → 2024-12-19 08:37 | Outpatient (CLI) | payer MEDICARE, OTHER, SELFPAY ==
--- NOTE | 2024-12-19 | DI.RAD.S_ITS ---
PROCEDURE: XR KNEE STANDING BI INDICATIONS: BILAT SHOULDER AND KNEE PAIN TECHNIQUE: AP view of both knees was acquired . COMPARISON: [facility], CR, XR KNEE RT 3V, 03/07/2022, 9:07. FINDINGS: Bones: There are no osseous abnormalities. Joints: Severe left medial tibial femoral moderate right medial tibial femoral degeneration . Soft tissues: Normal IMPRESSION: Bilateral degeneration Dictated by: Kory Rowan M.D. on 12/19/2024 at 12:23 Approved by: Kory Rowan M.D. on 12/19/2024 at 12:23
--- NOTE | 2024-12-19 | DI.RAD.S_ITS ---
PROCEDURE: XR SHOULDER RT MIN 2V INDICATIONS: BILAT SHOULDER AND KNEE PAIN TECHNIQUE: Three views of the right shoulder were acquired. COMPARISON: [facility], CR, XR SHOULDER RT MIN 2V, 08/20/2023, 12:43. FINDINGS: Bones: There are no osseous abnormalities. Acromioclavicular and glenohumeral joints: Severe glenohumeral and moderate acromioclavicular degeneration. Few loose bodies overlie the axillary recess . Soft tissues: No soft tissue swelling, calcification or mass. IMPRESSION: Severe glenohumeral degeneration with loose bodies in the axillary recess Moderate acromioclavicular degeneration Dictated by: Kory Rowan M.D. on 12/19/2024 at 12:23 Approved by: Kory Rowan M.D. on 12/19/2024 at 12:25
--- NOTE | 2024-12-19 | DI.RAD.S_ITS ---
PROCEDURE: XR SHOULDER LT MIN 2V INDICATIONS: BILAT SHOULDER AND KNEE PAIN TECHNIQUE: Three views of the shoulder were acquired. COMPARISON: [facility], CR, XR SHOULDER RT MIN 2V, 08/20/2023, 12:43. FINDINGS: Bones: There are no osseous abnormalities. Acromioclavicular and glenohumeral joints: Severe glenohumeral and moderate acromioclavicular degeneration appreciated . Soft tissues: Heavy calcification is seen expected location mid rotator cuff. IMPRESSION: Severe glenohumeral and moderate acromioclavicular degeneration Probable calcific tendinitis rotator cuff. This can be treated nonsurgically with ultrasound-guided barbotage Dictated by: Kory Rowan M.D. on 12/19/2024 at 12:21 Approved by: Kory Rowan M.D. on 12/19/2024 at 12:22
== END ==
PROVIDERS: PCP Nurse Practitioner Family; Referring Provider Nurse Practitioner Family; Visit Provider Physician Assistant
DX: M19.011 Primary osteoarthritis, right shoulder (principal); M19.012 Primary osteoarthritis, left shoulder; M17.0 Bilateral primary osteoarthritis of knee; M25.511 Pain in right shoulder; M25.512 Pain in left shoulder; M25.561 Pain in right knee; M25.562 Pain in left knee; G89.29 Other chronic pain
CPT/HCPCS: 73030; 73565

== ENCOUNTER → 2024-12-23 06:57 | Outpatient (CLI) | payer MEDICARE, OTHER, SELFPAY ==
[2024-12-23 07:41] LABS: Add Manual Diff / Slide Review NO; Hematocrit 40.8 % (36-46); Hemoglobin 14.1 g/dL (12.0-16.0); Lymphocytes Absolute Auto 1500 /uL (1100-4500); Mean Corpuscular HGB Conc 34.6 % (30-36); Mean Corpuscular Hemoglobin 31.5 PG (26-34); Mean Corpuscular Volume 91.0 fL (80-100); Platelet Count 233 X10^3/uL (150-400)
[2024-12-23 08:04] LABS: Alanine Aminotransferase 17 IU/L (<35); Albumin 4.1 g/dL (3.5-5.0); Albumin Globulin Ratio 1.5 (1.0-2.8); Alkaline Phosphatase 90 U/L (38-126); Blood Urea Nitrogen 19 mg/dL (7-17); Calcium 9.2 mg/dL (8.4-10.2); Carbon Dioxide 26 mmol/L (22-32); Chloride 105 mmol/L (98-107); Cholesterol 170 mg/dL (140-199); Estimated Glomerular Filt Rate > 60 mL/min (>60); Globulin 2.8 g/dL (1.7-4.1); Glucose 106 mg/dL (70-99); HDL Cholesterol 64 mg/dL (40-60); HEMOLYSIS < 15 (0-50); Potassium 4.3 mmol/L (3.4-5.1); Sodium 137 mmol/L (137-145); Total Protein 6.9 g/dL (6.3-8.2); Triglycerides 110 mg/dL (35-150)
[2024-12-23 08:22] LABS: Free T4, Direct Thyroxine 1.63 ng/dL (0.78-2.19)
[2024-12-23 08:36] LABS: Thyroid Stimulating Hormone 2.09 uIU/mL (0.47-4.68)
== END ==
PROVIDERS: PCP Physician Assistant; Referring Provider Physician Assistant; Visit Provider Physician Assistant
DX: E03.9 Hypothyroidism, unspecified (principal); E78.2 Mixed hyperlipidemia; I10 Essential (primary) hypertension
CPT/HCPCS: 36415; 80053; 80061; 84439; 84443; 85025